=== PATIENT | male | born 1955 | race Caucasian/White ===

== ENCOUNTER 2021-02-10 04:14 | Emergency (ER) | payer MEDICARE ==
[~2021-02-10] VITALS: Ht 180.3 cm; Wt 71.2 kg
[2021-02-10 04:28] VITALS: BP 159/91
[2021-02-10] MEDS ORDERED: NORFLEX IM STA (04:29)
[2021-02-10] MEDS ORDERED: TORADOL IM STA (04:29)
[2021-02-10] MEDS ORDERED: DIGO250T3 PO (04:31)
[2021-02-10] MEDS ORDERED: METO-238 PO (04:31)
[2021-02-10] MEDS ORDERED: SOFO1TAB PO (04:31)
[2021-02-10] MEDS ORDERED: WARF3TAB52 PO (04:31)
[2021-02-10] MEDS ORDERED: FURO40TA4 PO (04:31)
[2021-02-10] MEDS ORDERED: LISI10TA20 PO (04:31)
--- NOTE | 2021-02-10 04:34 | ER.PDOC ---
General Chief Complaint: Requesting Medical Care Stated Complaint: L HIP PAIN Time seen by MD: 04:31 Source: patient Exam Limitations: no limitations History of Present Illness Initial Comments Left hip pain for several months worse in the last 2 days. Pain radiates down the left leg causing numbness and tingling sensation. Patient denies injury. Pain is worse with movement. It eases up when he remains still. Quality: moderate Method of Injury/Prior Injury: unknown Location: hip (L) Symptoms prior to fall: denies symptoms Other Injuries: none Subsequent symptoms: numbness Past Medical History Medical History: cardiac problems Family History Significant Family History: no pertinent family hx Social History Drug Use: none Review of Systems Constitutional: no symptoms reported EENTM: no symptoms reported Respiratory: no symptoms reported Cardiovascular: no symptoms reported Gastrointestinal: no symptoms reported Musculoskeletal: see HPI All Other Systems: Reviewed and Negative Physical Exam General Appearance: No Apparent Distress, WD/WN Extremities: no obvious injury, no pedal edema, nml ROM, nml tendon exam, hip pain on movement (left) Neck: nml inspection, non-tender Cardiovascular/Respiratory: Regular Rate, Rhythm, No M/R/G, Normal Peripheral Pulses, No JVD, Normal Breath Sounds, No Respiratory Distress Abdominal: Non-Tender, No Organomegaly, No Hernia Back: Normal Inspection, No CVA Tenderness Extremities: No Evidence of Injury, Normal Range of Motion, Non-Tender, No Pedal Edema 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, 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, mood/effect nml, No Motor/Sensory Deficits, Relexes nml Skin: Normal Color, Warm/Dry Results/Orders Results/Orders Orders - APPLE REYNOLDS MD Ketorolac Tromethamine (Toradol) (02/10/21 04:29) Orphenadrine Citrate (Norflex) (02/10/21 04:29) Xr Hip Lt 2v W/Pelvis (02/10/21 04:29) Ketorolac Tromethamine (Toradol) (02/10/21 04:37) Diazepam (Valium) (02/10/21 04:40) Diazepam (Valium) (02/10/21 05:00) Vital Signs Date Time Temp Pulse Resp B/P (MAP) Pulse Ox O2 Delivery O2 Flow Rate FiO2 02/10/21 05:19 98.7 75 18 119/68 (85) 97 Room Air 4/30/21 04:35 98.7 95 18 159/91 (113) 97 Room Air 02/10/21 04:28 98.7 95 18 02/10/21 04:28 98.7 95 18 159/91 (113) 97 Room Air 02/10/21 04:28 98.7 95 18 97 Administered Medications Medications (Trade) Dose Ordered Sig/Sourav Route PRN Reason Start Time Stop Time Status Last Admin Dose Admin Diazepam (Valium) 5 mg STAT ONCE IM 02/10/21 05:00 02/10/21 05:01 DC 02/10/21 04:48 5 MG Ketorolac Tromethamine (Toradol) 60 mg STAT STAT IM 02/10/21 04:29 02/10/21 04:31 DC 02/10/21 04:47 60 MG Progress Progress Patient's hip pain better after he had Toradol and Valium. Reviewed x-ray report with patient and he voiced understanding. EKG/XRAY/CT/US XRAY Comments: Normal left hip ER DEPARTURE Departure Time of Disposition: 05:31 Disposition: 01 HOME, SELF-CARE Impression: Primary Impression: Hip pain, left Additional Impression: Sciatica of left side Condition: Improved Referrals: PCP,UNKNOWN (PCP) PRIMARY CARE PROVIDER Additional Instructions: Tramadol Flexeril Prednisone F/U with your PCP in 2-3 days Return to ED if worsening pain or concerns Duration or Time Spent with Pa: 20 min Justification of Admit/Observ Is this patient coming directl: Yes *Level of Care/Services Provid: ER Admit Criteria Met: NO Justification Content JUSTIFICATION FOR ADMISSION Instructions 1. Open link in [employer] Browser. [email or web address] 2. Copy and paste data needed to meet the Admit Criteria. 3. Modify and document the needful data to meet the Admit Criteria. Problem Qualifiers APPLE REYNOLDS MD Feb 10, 2021 04:34
[2021-02-10 04:35] VITALS: BP 159/91
[2021-02-10] MEDS ORDERED: TORADOL ONE (04:37)
[2021-02-10] MEDS ORDERED: VALIUM ONE (04:40)
--- NOTE | 2021-02-10 04:48 | NUR ---
SELMA CONN IN PT ROOM WITH PORTABLE FOR XRAY AT THIS TIME.
[2021-02-10] MEDS ORDERED: AMIT50TA PO (04:56)
[2021-02-10] MEDS ORDERED: VALIUM IM ONE (05:00)
--- NOTE | 2021-02-10 05:06 | DIREP ---
PROCEDURE:XRAY HIP MIN 2VW-LT COMPARISON:None. INDICATIONS:pain FINDINGS: BONES:Normal. JOINTS:Normal. SOFT TISSUES:Normal. OTHER:No additional findings. CONCLUSION: 1. Normal radiographs of the left hip. Dictated by: Israel Gamboa M.D. on 02/10/2021 at 05:04 AM
[2021-02-10 05:19] VITALS: BP 119/68
[2021-02-10 05:40] VITALS: BP 108/70
== END 2021-02-10 05:41 | disposition home or self-care (01) ==
LOC: ER 04:14
DX: M54.32 Sciatica, left side (principal); M25.552 Pain in left hip
CPT/HCPCS: 73502; 96372; 99284; J1885; J3360